=== PATIENT | male | born 1985 | race Caucasian/White ===

== ENCOUNTER 2016-12-24 21:19 | Emergency (ER) | payer BC ==
[2016-12-24 21:37] VITALS: BP 107/71
--- NOTE | 2016-12-24 22:01 | UC ---
Eye Complaint HPI - HPI Summary HPI Summary: 1 day of itchy purulent drainage from the left eye for the past day, - History of Current Complaint Chief Complaint: UCEye Stated Complaint: PINK EYE Time Seen by Provider: 12/24/16 21:56 Hx Obtained From: Patient Hx From Patient Unobtainable Due To: Dementia Onset/Duration: Sudden Onset, Lasting Days - 1 Timing: Constant Severity Initially: Mild Severity Currently: Moderate Location of Injury: Conjunctiva, Sclera Character: Foreign Body Sensation Aggravating Factor(s): Ultraviolet Exposure Alleviating Factor(s): Nothing Associated Signs And Symptoms: Positive: Drainage (Purulent), Swelling - of lower lid - Allergies/Home Medications Allergies/Adverse Reactions: Allergies Allergy/AdvReac Type Severity Reaction Status Date / Time No Known Allergies Allergy Verified 12/24/16 21:37 PMH/Surg Hx/FS Hx/Imm Hx Previously Healthy: Yes - Surgical History Surgical History: None - Family History Known Family History: Positive: Hypertension - Social History Alcohol Use: None Substance Use Type: None Smoking Status (MU): Current Every Day Smoker Type: Cigarettes Amount Used/How Often: 1/2 PPD Length of Time of Smoking/Using Tobacco: 11 YRS Have You Smoked in the Last Year: Yes Review of Systems Constitutional: Negative Skin: Negative Eyes: Drainage, Eye Redness ENT: Negative Respiratory: Negative Cardiovascular: Negative Gastrointestinal: Negative Genitourinary: Negative Motor: Negative Neurovascular: Negative Musculoskeletal: Negative Neurological: Negative Psychological: Negative Is Patient Immunocompromised?: No All Other Systems Reviewed And Are Negative: Yes Physical Exam Triage Information Reviewed: Yes Appearance: Well-Appearing, Well-Nourished, Pain Distress Vital Signs: Initial Vital Signs Temp 98.2 F 12/24/16 21:31 Pulse 64 12/24/16 21:31 Resp 16 12/24/16 21:31 BP 107/71 12/24/16 21:31 Pulse Ox 98 12/24/16 21:31 Vital Signs Reviewed: Yes Eyes: Positive: Conjunctiva Inflamed, Discharge - purulent ENT Exam: Normal ENT: Positive: Normal ENT inspection, Hearing grossly normal, Pharynx normal, TMs normal Dental Exam: Normal Neck exam: Normal Neck: Positive: Supple, Nontender, No Lymphadenopathy Respiratory Exam: Normal Respiratory: Positive: Chest non-tender, Lungs clear, Normal breath sounds Cardiovascular Exam: Normal Cardiovascular: Positive: RRR, No Murmur, Pulses Normal Abdominal Exam: Normal Abdomen Description: Positive: Nontender, No Organomegaly, Soft Bowel Sounds: Positive: Present Musculoskeletal Exam: Normal Musculoskeletal: Positive: Strength Intact, ROM Intact, No Edema Neurological Exam: Normal Neurological: Positive: Alert, Muscle Tone Normal Psychological Exam: Normal Skin Exam: Normal Eye Complaint Course/Dx - Course Course Of Treatment: hx obtained, exam performed ,meds reviewed, eye drops dispensed - Differential Dx/Diagnosis Differential Diagnosis/HQI/PQRI: Conjunctivitis, Corneal Abrasion, Periorbital Cellulitis Provider Diagnoses: left eye conjunctivitis bacterial Discharge - Discharge Plan Condition: Stable Disposition: HOME Patient Education Materials: Conjunctivitis (ED) Additional Instructions: 1. use the drops as prescribed.
[2016-12-24] MEDS: Polymyx/Trimethoprim OPTH* 10 ML BTL LEFT EYE ONE (22:09)
== END 2016-12-24 22:12 | disposition home or self-care (01) ==
LOC: UCCORT 21:19
DX: H10.32 Unspecified acute conjunctivitis, left eye (principal); F17.210 Nicotine dependence, cigarettes, uncomplicated
CPT/HCPCS: 99201; G0463

== ENCOUNTER 2018-06-15 12:45 | Emergency (ER) | payer BC ==
[2018-06-15 13:01] VITALS: BP 136/81
--- NOTE | 2018-06-15 13:18 | ED ---
Lower Extremity - HPI Summary HPI Summary: 32 yr old with the complaint of left knee pain. The patient states that for a while he has had popping in his left knee at the knee cap, and also has had pain in the left knee with movement. He states that yesterday he was jumping up and down on a tire iron when changing a tire. He was jumping up and down with the left foot. The patient has pain that is moderate, worse with movement , and associated with feeling popping. No other complaints. - History of Current Complaint Chief Complaint: UCLowerExtremity Stated Complaint: LEFT KNEE PAIN Time Seen by Provider: 06/15/18 13:00 Pain Intensity: 7 - Allergies/Home Medications Allergies/Adverse Reactions: Allergies Allergy/AdvReac Type Severity Reaction Status Date / Time No Known Allergies Allergy Verified 06/15/18 12:59 PMH/Surg Hx/FS Hx/Imm Hx Infectious Disease History: No Infectious Disease History: Denies: Traveled Outside the [place] in Last 30 Days - Family History Known Family History: Positive: Hypertension - Social History Occupation: Employed Full-time Alcohol Use: None Substance Use Type: Reports: None Smoking Status (MU): Current Every Day Smoker Type: Cigarettes Amount Used/How Often: 1/2 PPD Length of Time of Smoking/Using Tobacco: 11 YRS Have You Smoked in the Last Year: Yes Review of Systems Constitutional: Negative Positive: Other - left knee pain All Other Systems Reviewed And Are Negative: Yes Physical Exam Triage Information Reviewed: Yes Vital Signs On Initial Exam: Initial Vitals Temp Pulse Resp BP Pulse Ox 98.2 F 67 18 136/81 99 06/15/18 12:58 06/15/18 12:58 06/15/18 12:58 06/15/18 12:58 06/15/18 12:58 Vital Signs Reviewed: Yes Appearance: Positive: Well-Appearing, No Pain Distress Skin: Positive: Warm, Skin Color Reflects Adequate Perfusion Head/Face: Positive: Normal Head/Face Inspection Eyes: Positive: EOMI ENT: Positive: Normal ENT inspection Neck: Positive: Nontender Respiratory/Lung Sounds: Positive: Clear to Auscultation, Breath Sounds Present Cardiovascular: Positive: RRR. Negative: Murmur Abdomen Description: Negative: Distended Musculoskeletal: Positive: Strength/ROM Intact, Other - some tenderness over the left patella. No effusion, no redness, no bruise. His left leg extends well with full patellar tendon strength. No pain in the left popliteal fossae on palpation. No deformity. No left leg swelling Neurological: Positive: Sensory/Motor Intact, Alert, Oriented to Person Place, Time, CN Intact II-III, Speech Normal Diagnostics - Vital Signs Vital Signs Temp Pulse Resp BP Pulse Ox 06/15/18 12:58 98.2 F 67 18 136/81 99 - Laboratory Lab Statement: Any lab studies that have been ordered have been reviewed, and results considered in the medical decision making process. - Radiology left knee Radiology Interpretation Completed By: Radiologist - NAD Lower Extremity Course/Dx - Course Course Of Treatment: Neg xray. Patient with acute on chronic left knee issue. Will refer to Ortho for follow up. May need MR as outpatient. Referral to ortho for follow up. - Diagnoses Provider Diagnoses: Internal derangement of left knee, Elevated blood pressure reading Discharge - Sign-Out/Discharge Documenting (check all that apply): Patient Departure All imaging exams completed and their final reports reviewed: Yes - Discharge Plan Condition: Good Disposition: HOME Prescriptions: Ibuprofen TAB* [Motrin TAB* 600 MG] 600 mg PO Q6H PRN #14 tab PRN Reason: Pain Patient Education Materials: Hypertension (ED), Knee Pain (ED) Referrals: No Primary Care Phys,NOPCP [Primary Care Provider] - Adonay Valero MD [Medical Doctor] - 2 Days [facility] [Outside] - Billing Disposition and Condition Condition: GOOD Disposition: Home
== END 2018-06-15 13:48 | disposition home or self-care (01) ==
LOC: UCCORT 12:45
DX: M23.8X2 Other internal derangements of left knee (principal); R03.0 Elevated blood-pressure reading, without diagnosis of hypertension; F17.210 Nicotine dependence, cigarettes, uncomplicated
CPT/HCPCS: 99212; G0463